=== PATIENT | female | born 1965 | race Caucasian/White ===

== ENCOUNTER → 2016-11-17 | Outpatient (CLI) | payer MEDICARE, OTHER ==
[2016-11-17 12:51] LABS: BUN/CREATININE RATIO 17 (0-10)
== END ==
LOC: LAB 11:35
PROVIDERS: Internal Medicine Cardiovascular Disease
DX: I50.22 Chronic systolic (congestive) heart failure (principal); I47.2 Ventricular tachycardia; I42.0 Dilated cardiomyopathy; I49.3 Ventricular premature depolarization; R55 Syncope and collapse; E78.5 Hyperlipidemia, unspecified; E00.2 Congenital iodine-deficiency syndrome, mixed type
CPT/HCPCS: 36415; 80048; 83880

== ENCOUNTER → 2020-12-30 | Outpatient (CLI) | payer MEDICARE, OTHER ==
[~2020-12-30] MED LIST: ALDACTONE25 MG PO; AMITIZA24 MCG PO; BUSPAR 10MG10 MG PO; CELEBREX100 MG PO; CYMBALTA60 MG PO; ESTRACE1 MG PO; FAMOTIDINE20 MG PO; FLOVENT 44 MCG7.9 GM INH; GABAPENTIN400 MG PO; GLUCOPHAGE500 MG PO; IMITREX50 MG PO; JARDIANCE25 MG PO; LASIX20 MG PO; LASIX40 MG PO; LINZESS145 MCG PO; LOVAZA1 GM PO; MOBIC15 MG PO; MYRBETRIQ50 MG PO; NEURONTIN 400400 MG PO; NORTRIPTYLINE H25 MG PO; PERCOCET 7.5-31 EACH PO; PRIMIDONE50 MG PO; PROTONIX20 MG PO; REQUIP0.5 MG PO; REQUIP1 MG PO; ROPINIROLE HCL0.5 MG PO; ROXICODONE5 MG PO; TOPAMAX50 MG PO; TOPROL XL50 MG PO; TRAMADOL-ACETA1 EACH PO; TRICOR145 MG PO; VASOTEC 2.5 MG2.5 MG PO; VENTOLIN HFA 66.7 GM INH; VITAMIN D3 PO; XYZAL5 MG PO; ZANAFLEX4 MG PO; ZANTAC 150 MG150 MG PO; ZANTAC150 MG PO; ZOLOFT100 MG PO
[2020-12-30 10:59] LABS: HEMOGLOBIN 13.5 gm/dl (12.3-15.3); RED BLOOD COUNT 4.9 M/UL (4.00-5.10); WHITE BLOOD COUNT 6.8 K/UL (4.5-11.0)
== END ==
LOC: EDSTATUS 09:30 → OPSV2 09:30
PROVIDERS: Orthopaedic Surgery
DX: Z01.812 Encounter for preprocedural laboratory examination (principal); Z01.810 Encounter for preprocedural cardiovascular examination; Z01.811 Encounter for preprocedural respiratory examination; M17.12 Unilateral primary osteoarthritis, left knee; E11.9 Type 2 diabetes mellitus without complications
CPT/HCPCS: 36415; 71046; 80048; 81001; 83036; 85027; 87086; 93005

== ENCOUNTER → 2021-01-12 | Outpatient (CLI) | payer MEDICARE, OTHER ==
[2021-01-12 14:05] LABS: BUN/CREATININE RATIO 26 (0-10)
== END ==
LOC: LAB 12:13
PROVIDERS: Orthopaedic Surgery
DX: Z01.812 Encounter for preprocedural laboratory examination (principal)
CPT/HCPCS: 36415; 80048; 86850; 86900; 86901

== ENCOUNTER 2021-01-13 05:44 | Day surgery (SDC) | payer MEDICARE, OTHER ==
[~2021-01-13] VITALS: Ht 166.4 cm; Wt 94.8 kg
[~2021-01-13 05:44] MED LIST changes: -CELEBREX100 MG PO; -CYMBALTA60 MG PO; -FAMOTIDINE20 MG PO; -GABAPENTIN400 MG PO; -JARDIANCE25 MG PO; -ROPINIROLE HCL0.5 MG PO; -ROXICODONE5 MG PO; -TRAMADOL-ACETA1 EACH PO; -VITAMIN D3 PO
[2021-01-13] MEDS ORDERED: VITAMIN D3 PO (06:46)
[2021-01-13] MEDS ORDERED: ROPINIROLE HCL0.5 MG PO (06:47)
[2021-01-13] MEDS ORDERED: GABAPENTIN400 MG PO (06:48)
[2021-01-13] MEDS ORDERED: FAMOTIDINE20 MG PO (06:56)
[2021-01-13] MEDS ORDERED: CELEBREX100 MG PO (06:57)
[2021-01-13] MEDS ORDERED: TRAMADOL-ACETA1 EACH PO (06:57)
[2021-01-13] MEDS ORDERED: CYMBALTA60 MG PO (06:57)
[2021-01-13] MEDS ORDERED: JARDIANCE25 MG PO (06:58)
[2021-01-13] MEDS ORDERED: ROXICODONE5 MG PO (10:50)
[2021-01-14 03:17] LABS: RED BLOOD COUNT 4.2 M/UL (4.00-5.10); WHITE BLOOD COUNT 15.4 K/UL (4.5-11.0)
[2021-01-14 03:39] LABS: BUN/CREATININE RATIO 25 (0-10)
== END 2021-01-14 14:07 | disposition home or self-care (01) ==
LOC: OR 05:44 → EDSTATUS 09:30 → M/S 16:20 → OR 01-14 14:07
PROVIDERS: Orthopaedic Surgery
DX: M17.12 Unilateral primary osteoarthritis, left knee (principal); G89.29 Other chronic pain; I11.0 Hypertensive heart disease with heart failure; I50.9 Heart failure, unspecified; E78.5 Hyperlipidemia, unspecified; J45.909 Unspecified asthma, uncomplicated; K21.9 Gastro-esophageal reflux disease without esophagitis; E11.40 Type 2 diabetes mellitus with diabetic neuropathy, unspecified; M79.7 Fibromyalgia; Z90.49 Acquired absence of other specified parts of digestive tract; G25.81 Restless legs syndrome; Z95.0 Presence of cardiac pacemaker; Z88.8 Allergy status to other drugs, medicaments and biological substances; E66.9 Obesity, unspecified; Z68.34 Body mass index [BMI] 34.0-34.9, adult; Z79.4 Long term (current) use of insulin
CPT/HCPCS: 36415; 73560; 80048; 82962; 85025; 97116-GP-CQ; 97161; 97166; 97530-GP-CQ; 97535; C1776; J0171; J0690; J1100; J1170; J2001; J2250; J2405; J2704; J2795; J3010; J3370; J7030; J7120